=== PATIENT | male | born 1970 | race Caucasian/White ===

== ENCOUNTER 2019-01-27 10:12 | Emergency (ER) | payer MEDICAID ==
[~2019-01-27] VITALS: Ht 180.3 cm; Wt 94.0 kg
[2019-01-27] MEDS ORDERED: SODIUM CHLORIDE 0.9% 1,000 ML IV ONE (17:15)
[2019-01-27] MEDS ORDERED: ONDANSETRON HCL 4MG/2ML INJ IV STA (17:15)
[2019-01-27] MEDS ORDERED: KETOROLAC 30MG/ML VIAL IV STA (17:15)
[2019-01-27 17:37] LABS: CHLORIDE 104 mEq/L (98-107)
[2019-01-27 17:38] LABS: BASOPHILS % 0.5 % (0.0-2.0); EOSINOPHILS % 2.5 % (0.0-5.0); HEMATOCRIT. 40.2 % (42.0-52.0); HEMOGLOBIN. 13.9 g/dL (14.0-18.0); LYMPHOCYTES % 32.9 % (20.0-50.0); MEAN CORPUSCULAR HEMOGLOBIN 31.3 pg (28.0-32.0); MEAN CORPUSCULAR VOLUME 90.6 fL (80.0-94.0); MEAN PLATELET VOLUME 8.4 fl (7.4-10.4); MONOCYTES % 9.1 % (2.0-8.0); PLATELET 163 x1000/uL (130-400); RED BLOOD CELL COUNT 4.43 mill/uL (4.7-6.1); RED CELL DISTRIBUTION WIDTH 15.4 % (11.6-14.6)
[2019-01-27 17:38] LABS: CLARITY URINE CLEAR (CLEAR); COLOR URINE YELLOW (YELLOW); KETONES URINE NEGATIVE (NEGATIVE); LEUKOCYTE ESTERASE URINE NEGATIVE (NEGATIVE); NITRITE URINE NEGATIVE (NEGATIVE); OCCULT BLOOD URINE NEGATIVE (NEGATIVE); PROTEIN URINE NEGATIVE (NEGATIVE); SPECIFIC GRAVITY URINE 1.014 (1.005-1.030); UROBILINOGEN URINE 0.2 E.U./dL (0.2-1.0)
[2019-01-27] MEDS ORDERED: MORPHINE SULFATE 4 MG/ML CPJ (NOT FOR IM USE) IV ONE (19:00)
[2019-01-27] MEDS ORDERED: ONDANSETRON HCL 4MG/2ML INJ IV ONE (19:00)
[2019-01-27] MEDS ORDERED: LORAZEPAM 2MG/ML CPJ IV ONE (19:30)
[2019-01-27] MEDS ORDERED: IOHEXOL-300 100 ML BOTTLE ONE (19:32)
[2019-01-27 23:30] VITALS: BP 118/75
[2019-01-28 08:26] LABS: *AMPHETAMINES SCREEN URINE NEGATIVE (NEGATIVE); *BARBITURATES SCREEN URINE NEGATIVE (NEGATIVE); *BENZODIAZEPINES SCREEN URINE NEGATIVE (NEGATIVE)
[2019-01-28 08:27] LABS: *COCAINE SCREEN URINE NEGATIVE (NEGATIVE); CANNABINOID URINE SCREEN NEGATIVE (NEGATIVE); METHADONE URINE SCREEN NEGATIVE (NEGATIVE); OPIATES URINE SCREEN NEGATIVE (NEGATIVE); PHENCYCLIDINE URINE SCREEN NEGATIVE (NEGATIVE)
== END 2019-01-28 01:51 | disposition home or self-care (01) ==
LOC: ER 10:12
DX: R10.9 Unspecified abdominal pain (principal); R11.0 Nausea; K59.00 Constipation, unspecified; F32.9 Major depressive disorder, single episode, unspecified; Z96.649 Presence of unspecified artificial hip joint
CPT/HCPCS: 36415; 74177; 80053; 80305; 80320; 81003; 83690; 85025; 96374; 96375; 96376; 99284; J1885; J2060; J2270; J2405; J7030; Q9967; Z7610; G0480

== ENCOUNTER 2019-02-11 07:07 | Emergency (ER) | payer MEDICAID ==
[~2019-02-11] VITALS: Ht 177.8 cm; Wt 94.0 kg
[2019-02-11] MEDS ORDERED: CEPHALEXIN 250MG CAPSULE PO ONE (08:00)
[2019-02-11] MEDS ORDERED: VISCOUS LIDOCAINE 2% 15 ML UDC PO STA (08:00)
[2019-02-11] MEDS ORDERED: DICYCLOMINE 10 MG/5 ML ORAL SYR PO STA (08:00)
[2019-02-11] MEDS ORDERED: MAGNESIUM/ALUMINUM HYDROXIDE/SIMETHICONE 30ML UDC PO STA (08:00)
[2019-02-11] MEDS ORDERED: ACETAMINOPHEN WITH CODEINE 300/30MG TABLET PO ONE (08:00)
[2019-02-11 08:52] LABS: BASOPHILS % 0.5 % (0.0-2.0); EOSINOPHILS % 1.9 % (0.0-5.0); HEMATOCRIT. 38.7 % (42.0-52.0); HEMOGLOBIN. 13.5 g/dL (14.0-18.0); LYMPHOCYTES % 30.3 % (20.0-50.0); MEAN CORPUSCULAR HEMOGLOBIN 31.3 pg (28.0-32.0); MEAN CORPUSCULAR VOLUME 89.4 fL (80.0-94.0); MEAN PLATELET VOLUME 8.4 fl (7.4-10.4); MONOCYTES % 9.8 % (2.0-8.0); NEUTROPHILS % 57.5 % (40.0-76.0); PLATELET 131 x1000/uL (130-400); RED BLOOD CELL COUNT 4.32 mill/uL (4.7-6.1); RED CELL DISTRIBUTION WIDTH 14.7 % (11.6-14.6)
[2019-02-11 09:01] LABS: CHLORIDE 110 mEq/L (98-107)
[2019-02-11 09:06] LABS: ETHANOL BLOOD < 10 mg/dL
[2019-02-11 09:55] LABS: CLARITY URINE CLEAR (CLEAR); COLOR URINE YELLOW (YELLOW); KETONES URINE NEGATIVE (NEGATIVE); LEUKOCYTE ESTERASE URINE NEGATIVE (NEGATIVE); NITRITE URINE NEGATIVE (NEGATIVE); OCCULT BLOOD URINE NEGATIVE (NEGATIVE); PH URINE 5.5 (4.5-8.0); PROTEIN URINE NEGATIVE (NEGATIVE); SPECIFIC GRAVITY URINE 1.018 (1.005-1.030); UROBILINOGEN URINE 0.2 E.U./dL (0.2-1.0)
[2019-02-11] MEDS ORDERED: KETOROLAC 60MG/2ML VIAL IM ONE (10:15)
[2019-02-11 10:47] VITALS: BP 118/78
== END 2019-02-11 10:30 | disposition home or self-care (01) ==
LOC: ER 07:07
DX: L03.111 Cellulitis of right axilla (principal); R10.33 Periumbilical pain; F17.200 Nicotine dependence, unspecified, uncomplicated; F32.9 Major depressive disorder, single episode, unspecified; Z85.828 Personal history of other malignant neoplasm of skin; Z96.649 Presence of unspecified artificial hip joint
CPT/HCPCS: 36415; 74018; 80053; 80320; 81003; 83690; 85025; 96374; 99284; J1885; G0480

== ENCOUNTER 2019-10-26 16:49 | Emergency (ER) | payer MEDICAID ==
[~2019-10-26] VITALS: Ht 172.7 cm; Wt 100.0 kg
[2019-10-26 16:59] VITALS: BP 141/87
[2019-10-26] MEDS ORDERED: IBUPROFEN 600MG TABLET PO ONE (18:30)
== END 2019-10-26 18:53 | disposition home or self-care (01) ==
LOC: ER 16:49
DX: H60.91 Unspecified otitis externa, right ear (principal); L30.9 Dermatitis, unspecified; Z98.890 Other specified postprocedural states
CPT/HCPCS: 99282; 99283

== ENCOUNTER 2019-10-31 09:48 | Emergency (ER) | payer MEDICAID ==
[~2019-10-31] VITALS: Ht 177.8 cm; Wt 92.0 kg
[2019-10-31] MEDS ORDERED: ONDANSETRON 4MG ODT PO ONE (10:30)
[2019-10-31] MEDS ORDERED: HYDROCODONE/ACETAMINOPHEN 5/325MG TABLET PO ONE (10:30)
[2019-10-31 10:32] VITALS: BP 115/65
== END 2019-10-31 10:34 | disposition home or self-care (01) ==
LOC: ER 09:48
DX: H66.91 Otitis media, unspecified, right ear (principal); H60.91 Unspecified otitis externa, right ear; F32.9 Major depressive disorder, single episode, unspecified; F41.9 Anxiety disorder, unspecified; Z85.9 Personal history of malignant neoplasm, unspecified; Z96.649 Presence of unspecified artificial hip joint
CPT/HCPCS: 99281; 99283

== ENCOUNTER 2019-11-20 12:45 | Emergency (ER) | payer MEDICAID ==
[~2019-11-20] VITALS: Ht 177.8 cm; Wt 96.0 kg
[2019-11-20] MEDS ORDERED: HYDROCODONE/ACETAMINOPHEN 5/325MG TABLET PO ONE (14:15)
[2019-11-20] MEDS ORDERED: IBUPROFEN 600MG TABLET PO ONE (14:15)
[2019-11-20 16:34] VITALS: BP 124/76
== END 2019-11-20 16:36 | disposition home or self-care (01) ==
LOC: ER 12:45
DX: H65.01 Acute serous otitis media, right ear (principal); H70.91 Unspecified mastoiditis, right ear; H72.91 Unspecified perforation of tympanic membrane, right ear; Z96.649 Presence of unspecified artificial hip joint; Z98.890 Other specified postprocedural states
CPT/HCPCS: 99284